=== PATIENT | female | born 1960 | race African-American/Black ===

== ENCOUNTER 2016-07-11 16:42 | Emergency (ER) | payer OTHER, MEDICAID ==
[~2016-07-11] VITALS: Ht 167.6 cm; Wt 81.6 kg
[~2016-07-11 16:42] MED LIST: CHOLESTEROL MED; CYCL5TAB PO; LEVO100T7 PO; SIMV10TA3 PO
--- OUTSIDE RECORDS SUMMARY | 2016-07-11 16:47 | XMS REPORT | Continuity of Care Document ---
Author Author [facility] Organization [facility] Address Unknown Phone Unavailable Care Team Providers Care Plasterer Apprentice Name Role Phone Unknown, Unknown PCP Unavailable Source Comments Some departments are not documenting in the electronic medical record. If you do not see the information that you expected, contact Release of Information in the Health Information Management department at [phone] for further assistance in locating additional records.[facility] Active Allergies and Adverse Reactions No Known Allergies Current Medications Prescription Sig. Disp. Refills Start End Date Status Date losartan (COZAAR) 50 mg Take 50 mg by mouth Active tablet daily. levothyroxine (SYNTHROID) Take 100 mcg by mouth Active 100 mcg tablet daily. simvastatin (ZOCOR) 20 mg Take 20 mg by mouth Active tablet daily. diclofenac sodium DR Take 75 mg by mouth twice Active (VOLTAREN) 75 mg tablet daily. cyclobenzaprine Take 10 mg by mouth every Active (FLEXERIL) 10 mg tablet 12 hours as needed for Muscle Cramps. ganciclovir(+) (ZIRGAN) Place 1 Drop into or 1 Tube 2 06/03/19 Active 0.15 % ophthalmic gel around eye(s) five times 16 daily. 5x day for one week then decrease to 3x day. prednisoLONE acetate Insert or Apply 1 Drop to 1 Bottle 1 06/03/19 Active (PRED FORTE) 1 % left eye as directed four 16 ophthalmic suspension times daily. 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 Reduced corneal nerves and possible segments of collagen. No hyphae, or double walled cysts Oasys 8.4 -.0.50 14.2 05/02/15 Gm stain 2 Gm + rods, but no growth at 3 days L ast Assessment & Plan: Stay off zirgan and acyv PF QOD RT 8-12 weeks Social History Tobacco Use Types Packs/Day Years Used Date Current Every Day Smoker Cigarettes 0.5 Alcohol Use Drinks/Week oz/Week Comments Yes 0 Standard 0.0 on occasion drinks or equivalent Last Filed Vital Signs Vital Sign Reading Time Taken Blood Pressure - - Pulse - - Temperature - - Respiratory Rate - - Height 1.702 m (5' 7") 08/29/2015 9:30 AM CDT Weight 113.399 kg (250 lb) 08/29/2015 9:30 AM CDT Body Mass Index 39.15 08/29/2015 9:30 AM CDT Oxygen Saturation - - Plan of Care Health Maintenance Due Date Last Done Comments Hepatitis C Screening 1961 Physical (Comprehensive) 1968 Exam Pertussis Vaccine 1972 Tetanus Vaccine 1978 Cervical Cancer Screening 1982 Breast Cancer Screening 2001 Colorectal Cancer 2011 Screening Influenza Vaccine 12/24/2016 Results from Last 3 Months Not on file
[2016-07-11] MEDS ORDERED: DICL75TA2 PO (17:10)
[2016-07-11] MEDS ORDERED: CYCL10TA9 PO (17:10)
[2016-07-11] MEDS ORDERED: LOSA50TA36 PO (17:10)
[2016-07-11] MEDS ORDERED: METF500T8 PO (17:10)
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
--- NOTE | 2016-07-11 18:11 | Diagnostic Imaging Report ---
EXAMINATION: Three views of the right ankle. INDICATION: Ankle injury. Twisted ankle. FINDINGS: There is a transversely oriented and mildly displaced fracture demonstrated of the medial malleolus. There is no evidence of a fracture of the distal fibula. There is no widening of the mortise. The talar dome is normal in morphology. Other than degenerative calcaneal spurs, the visualized portion of the foot is unremarkable. IMPRESSION: Mildly displaced transversely oriented fracture of the medial malleolus. Ankle alignment appears normal. No distal fibular fracture evident. Dictated by: Dictated on workstation # [id number]
[2016-07-11] MEDS ORDERED: HYDR-757 PO (18:50)
[2016-07-11] MEDS ORDERED: HYDROcodone/APAP 5 MG/325 MG (LORTAB) TAB PO ONE (19:00)
[2016-07-11 19:08] VITALS: BP 112/70
== END 2016-07-11 19:08 | disposition home or self-care (01) ==
LOC: EDUNIT# 16:42 → ER 16:43
DX: S82.51XA Displaced fracture of medial malleolus of right tibia, initial encounter for closed fracture (principal); E11.9 Type 2 diabetes mellitus without complications; I10 Essential (primary) hypertension; F17.210 Nicotine dependence, cigarettes, uncomplicated; Z79.899 Other long term (current) drug therapy; V48.4XXA Person boarding or alighting a car injured in noncollision transport accident, initial encounter; Y92.014 Private driveway to single-family (private) house as the place of occurrence of the external cause; Y99.8 Other external cause status
CPT/HCPCS: 29515; 73610

== ENCOUNTER → 2016-09-30 | Outpatient (CLI) | payer MEDICAID ==
[~2016-09-30] MED LIST changes: +CYCL10TA9 PO; +DICL75TA2 PO; +HYDR-757 PO; +LOSA50TA36 PO; +METF500T8 PO
--- NOTE | 2016-10-01 17:52 | Diagnostic Imaging Report ---
Bilateral screening mammogram. The current study was also evaluated with a Computer Aided Detection (CAD) system. INDICATION: Screening. No current complaints stated on the questionnaire. COMPARISON: 06/21/14. FINDINGS: The breasts are composed of heterogeneously dense parenchyma which may decrease mammographic sensitivity. There are benign-appearing calcifications seen. Allowing for technique and positional differences, no suspicious change is seen. IMPRESSION: Dense breasts with no definite change. ACR BI-RADS Category 2: Benign findings. Result letter will be mailed to the patient. Note: At least 10% of breast cancer is not imaged by mammography. Dictated on workstation # [id number]
== END ==
LOC: RAD 11:30
PROVIDERS: ATTEND Nurse Practitioner Family
DX: Z12.31 Encounter for screening mammogram for malignant neoplasm of breast (principal)
CPT/HCPCS: 77067

== ENCOUNTER → 2016-09-30 | Outpatient (CLI) | payer MEDICAID ==
--- NOTE | 2016-09-30 14:32 | Diagnostic Imaging Report ---
EXAMINATION: DEXA scan. INDICATION: Osteopenia TECHNIQUE: Bone mineral density estimated based on dual energy radiography over the lumbar spine and femoral necks, was performed. FINDINGS: The lumbar spine T-score is 0.5. T score over the left femoral neck is 1.6 and on the right side is 1.3. IMPRESSION: Normal bone mineral density. Dictated by: Dictated on workstation # [id number]
== END ==
LOC: RAD 11:34
PROVIDERS: ATTEND Nurse Practitioner Family
DX: Z78.0 Asymptomatic menopausal state (principal); Z87.81 Personal history of (healed) traumatic fracture; M89.9 Disorder of bone, unspecified
CPT/HCPCS: 77080

== ENCOUNTER 2017-03-08 16:24 | Emergency (ER) | payer MEDICAID ==
[~2017-03-08] VITALS: Ht 167.6 cm; Wt 83.9 kg
--- OUTSIDE RECORDS SUMMARY | 2017-03-08 16:40 | XMS REPORT | Clinical Summary ---
Author Author [facility] Organization [facility] Address Unknown Phone Unavailable Care Team Providers Care Upholstery Department Supervisor Name Role Phone PCP Unavailable Source Comments Some departments are not documenting in the electronic medical record. If you do not see the information that you expected, contact Release of Information in the Health Information Management department at [phone] for further assistance in locating additional records.[facility] Allergies No Known Allergies Current Medications Prescription Sig. Disp. Refills Start End Date Status Date losartan (COZAAR) 50 mg Take 50 mg by mouth Active tablet daily. levothyroxine (SYNTHROID) Take 100 mcg by mouth Active 100 mcg tablet daily. simvastatin (ZOCOR) 20 mg Take 20 mg by mouth Active tablet daily. cyclobenzaprine Take 10 mg by mouth every Active (FLEXERIL) 10 mg tablet 12 hours as needed for Muscle Cramps. 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: Presented to ED [...] and acyv PF QOD RT 8-12 weeks Encounters Date Type Specialty Care Team Description 12/10/2016 Office Visit Ophthalmology Heidy Cooper MD Corneal scar, left eye;Floppy lid syndrome from Last 3 Months Social History Tobacco Use Types Packs/Day Years Used Date Current Every Day Smoker Cigarettes 0.5 Alcohol Use Drinks/Week oz/Week Comments Yes 0 Standard 0.0 on occasion drinks or equivalent Sex Assigned at Date Recorded Not on file Last Filed Vital Signs Vital Sign Reading Time Taken Blood Pressure - - Pulse - - Temperature - - Respiratory Rate - - Oxygen Saturation - - Inhaled Oxygen - - Concentration Weight 111.5 kg (245 lb 13 oz) 12/10/2016 9:41 AM CDT Height 167.6 cm (5' 6") 12/10/2016 9:41 AM CDT Body Mass Index 39.68 12/10/2016 9:41 AM CDT Plan of Treatment Health Maintenance Due Date Last Done Comments HEPATITIS C SCREENING 1961 PHYSICAL (COMPREHENSIVE) 1968 EXAM PERTUSSIS VACCINE 1972 TETANUS VACCINE 1978 CERVICAL CANCER SCREENING 1991 BREAST CANCER SCREENING 2001 COLORECTAL CANCER 2011 SCREENING INFLUENZA VACCINE 11/23/2016 Results Not on filefrom Last 3 Months
--- OUTSIDE RECORDS SUMMARY | 2017-03-08 16:40 | XMS REPORT | Encounter Summary ---
Author Author [facility] Organization [facility] Address Unknown Phone Unavailable Care Team Providers Care Liquid Yeast Supervisor Name Role Phone PCP Unavailable Reason for Visit * Reason Comments Eye Problem PT previous Dr. Velazquez patient seen for neurotrophic keratitis OS; Pt states that this summer she has been having some eye pain in OS, redness, and light sensitivity; Pt states that vision at near is bad in the left eye; Pt denies flashes and floaters Encounter Details Date Type Department Care Team Description 12/10/2016 Office Visit [facility] Heidy Cooper MD Corneal scar, left Physicians - [address] eye;Floppy lid syndrome Ophthalmology [place], [place] [id number] [address] [place] [phone] [address] [place] [address] Social History Tobacco Use Types Packs/Day Years Used Date Current Every Day Smoker Cigarettes 0.5 Alcohol Use Drinks/Week oz/Week Comments Yes 0 Standard 0.0 on occasion drinks or equivalent Sex Assigned at Date Recorded Not on file as of this encounter Last Filed Vital Signs Vital Sign Reading Time Taken Blood Pressure - - Pulse - - Temperature - - Respiratory Rate - - Oxygen Saturation - - Inhaled Oxygen - - Concentration Weight 111.5 kg (245 lb 13 oz) 12/10/2016 9:41 AM CDT Height 167.6 cm (5' 6") 12/10/2016 9:41 AM CDT Body Mass Index 39.68 12/10/2016 9:41 AM CDT in this encounter Progress Notes * Heidy Cooper MD - 12/10/2016 10:00 AM CDT Formatting of this note may be different from the original. Body mass index is 39.68 kg/(m^2). Discussed patient's BMI with her. The body mass index is 39.68 kg/(m^2). and falls within the category of Obesity 2 (35 to <40); specialist visit only, referred back to Primary Care Provider for follow up. Assessment and Plan: Problem Corneal Scar, Left Eye Secondary to infection Floppy Lid Syndrome - MRx given per pt request pt understands vision limited due to scar OS - no evidence of active infection OS - ok to use OTC tears as needed and gel qhs - encourage pt to get checked for THOMAS All questions answered. Please return sooner should you have any questions or concerns. Heidy Cooper MD Staff Ophthalmology Next Visit:1 yr MRx x ECC [employer] [facility] TFBUT [place] IOP x Pachy x Dilate x OCT BAT x in this encounter Plan of Treatment Not on fileas of this encounter Visit Diagnoses Diagnosis Corneal scar, left eye Corneal opacity, unspecified Floppy lid syndrome Other disorders of eyelid in this encounter
--- OUTSIDE RECORDS SUMMARY | 2017-03-08 16:40 | XMS REPORT ---
Author Author NAINA GRIFFITH Organization [employer] Address Unknown Phone Unavailable Care Team Providers Care Estate Agent Name Role Phone NAINA GRIFFITH CP Unavailable Allergies No Known Allergies Problems Problem Type Condition Code Onset Dates Condition Status Assessment Acquired hypothyroidism E03.9 Active Problem Uterine leiomyoma, unspecified location D25.9 Active Assessment Uterine leiomyoma, unspecified location D25.9 Active Assessment Essential hypertension I10 Active Assessment Mixed hyperlipidemia E78.2 Active Problem Screening breast examination Z12.39 Active Problem Bilateral low back pain without sciatica M54.5 Active Problem Uterine bleeding, dysfunctional N93.8 Active Problem Acquired hypothyroidism E03.9 Active Problem Mixed hyperlipidemia E78.2 Active Problem Encounter for gynecological examination Z01.419 Active Problem Essential hypertension I10 Active Medications No Known Medications Procedures Procedure Coding System Code Date COMPREHEN METABOLIC PANEL CPT-4 95560 Jun 06, 2015 VENIPUNCT, ROUTINE* CPT-4 38976 Jun 06, 2015 ASSAY THYROID STIM HORMONE CPT-4 98694 Jun 06, 2015 Results Name Result Date Reference Range Unit Abnormality Flag ROUTINE VENIPUNCTURE Summary Purpose [employer] Submission
--- OUTSIDE RECORDS SUMMARY | 2017-03-08 16:40 | XMS REPORT ---
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 Active Problem Uterine bleeding, dysfunctional N93.8 Active 44984654 Problem Encounter for gynecological examination Z01.419 Active 260076202 Problem Type 2 diabetes mellitus without complication, without long-term current use of insulin E11.9 Active 519105329 Problem Prediabetes R73.09 Active 8665206 Problem Mixed hyperlipidemia E78.2 Active 346673136 Problem Carpal tunnel syndrome of right wrist G56.01 Active 355066933977837 Problem Uterine leiomyoma, unspecified location D25.9 Active 16679336 Problem Closed displaced fracture of medial malleolus of right tibia, initial encounter S82.51XA Active 34491424 Problem Essential hypertension I10 Active 77359548 ALLERGIES No Information SOCIAL HISTORY Never Assessed PLAN OF CARE VITAL SIGNS MEDICATIONS Medication Instructions Dosage Frequency Start Date End Date Duration Status Cyclobenzaprine HCl 10 mg Orally 1-2 times a day prn 1 tablet Active RESULTS No Results PROCEDURES No Known procedures IMMUNIZATIONS No Known Immunizations MEDICAL (GENERAL) HISTORY Type Description Date Medical History hypertension Medical History hyperlipidemia Medical History eczema Medical History fibroids Medical History breast nodule--Right, benign as of US from 08/2012 Medical History Hypothyroidism Medical History Alcoholism Medical History Lump or mass in breast Medical History Prediabetes last aic 6.3 Medical History Other abnormal glucose Medical History Nondependent tobacco use disorder Surgical History tubal ligation 1990 Hospitalization History see above
--- OUTSIDE RECORDS SUMMARY | 2017-03-08 16:41 | XMS REPORT ---
Author Author NAINA GRIFFITH Organization [employer] Address Unknown Phone Unavailable Care Team Providers Care Funeral Workers Name Role Phone NAINA GRIFFITH CP Unavailable Allergies No Known Allergies Problems Problem Type Condition Code Onset Dates Condition Status Problem Mixed hyperlipidemia E78.2 Active Problem Uterine leiomyoma, unspecified location D25.9 Active Problem Uterine bleeding, dysfunctional N93.8 Active Problem Screening breast examination Z12.39 Active Problem Prediabetes R73.09 Active Problem Essential hypertension I10 Active Problem Acquired hypothyroidism E03.9 Active Problem Bilateral low back pain without sciatica M54.5 Active Problem Encounter for gynecological examination Z01.419 Active Medications Medication Code System Code Instructions Start Date End Date Status Dosage levothyroxine NDC 0 100 mcg orally Once a day 2014 1 losartan NDC 0 50 mg orally Once a day June 27, 2014 take 1 tablet Simvastatin [facility] [address]-49 20 mg TAKE ONE TABLET BY MOUTH DAILY Results No Known Results Summary Purpose [employer] Submission
--- OUTSIDE RECORDS SUMMARY | 2017-03-08 16:41 | XMS REPORT ---
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 Active Problem Uterine bleeding, dysfunctional N93.8 Active 10083149 Problem Encounter for gynecological examination Z01.419 Active 306741792 Problem Type 2 diabetes mellitus without complication, without long-term current use of insulin E11.9 Active 445488914 Problem Prediabetes R73.09 Active 1015125 Problem Mixed hyperlipidemia E78.2 Active 117329522 Problem Carpal tunnel syndrome of right wrist G56.01 Active 295905465546059 Problem Uterine leiomyoma, unspecified location D25.9 Active 85641510 Problem Closed displaced fracture of medial malleolus of right tibia, initial encounter S82.51XA Active 15940569 Problem Essential hypertension I10 Active 99166771 ALLERGIES No Known Allergies SOCIAL HISTORY Never Assessed PLAN OF CARE Activity Details Follow Up 3 Months bp check 2 weeks nurse Reason:DM/HTN VITAL SIGNS Height 67 in 2016-09-15 Weight 252 lbs 2016-09-15 Temperature 98.4 degrees Fahrenheit 2016-09-15 Heart Rate 80 bpm 2016-09-15 Respiratory Rate 20 2016-09-15 BMI 39.46 kg/m2 2016-09-15 Blood pressure systolic 178 mmHg 2016-09-15 Blood pressure diastolic 102 mmHg 2016-09-15 MEDICATIONS Medication Instructions Dosage Frequency Start Date End Date Duration Status levothyroxine 100 mcg orally Once a day 1 24h Active Neurontin 300 mg 1 capsule by Oral route 1 time per day PRN for pain AT BEDTIME Apr, Active HydrOXYzine HCl 10 mg 1 tablet by Oral route 4 times per day PRN itching Feb, Active Cyclobenzaprine HCl 10 mg Orally 1-2 times a day prn 1 tablet Active Citalopram Hydrobromide 20 MG Orally Once a day 1 tablet 24h Active Simvastatin 20 mg orally daily 1 tablet 24h Active MetFORMIN HCl ER 500 mg Orally Once a day 1 tablet with evening meal 24h 30 day(s) Active Losartan Potassium-HCTZ 100-12.5 MG Orally Once a day 1 tablet 24h August, 30 day(s) Active Diclofenac Sodium 75 mg Orally 2 times a day 1 tablet with food or milk 12h Active RESULTS Name Result Date Reference Range TSH 2016-09-15 TSH 2.540 0.450-4.500 CMP 2016-09-15 Glucose, Serum 106 65-99 BUN 9 6-24 Creatinine, Serum 0.63 0.57-1.00 eGFR If NonAfricn Am 101 >59 eGFR If Africn Am 117 >59 BUN/Creatinine Ratio 14 9-23 Sodium, Serum 140 134-144 Potassium, Serum 3.8 3.5-5.2 Chloride, Serum 98 96-106 Carbon Dioxide, Total 23 18-29 Calcium, Serum 8.9 8.7-10.2 Protein, Total, Serum 6.8 6.0-8.5 Albumin, Serum 4.3 3.5-5.5 Globulin, Total 2.5 1.5-4.5 A/G Ratio 1.7 1.2-2.2 Bilirubin, Total 0.3 0.0-1.2 Alkaline Phosphatase, S 75 39-117 AST (SGOT) 15 0-40 ALT (SGPT) 20 0-32 A1C (IN HOUSE) 2016-09-15 A1C IN HOUSE 6.3 4.3 - 5.6 % Previous A1c 6.8 Lot [id number] Exp date 06/2018 Mammogram, Bilateral Screening 2016-09-30 Bone Density 2016-09-30 PROCEDURES Procedure Date Ordered Result Body Site GLYCATED HEMOGLOBIN TEST September 15, 2016 LAB NOT BILLED BY [facility] September 15, 2016 VENIPUNCT, ROUTINE* September 15, 2016 IMMUNIZATIONS No Known Immunizations MEDICAL (GENERAL) HISTORY [...]
--- OUTSIDE RECORDS SUMMARY | 2017-03-08 16:41 | XMS REPORT ---
Author Author NAINA GRIFFITH Organization eClinicalWorks Address Unknown Phone Unavailable Care Team Providers Care Door Liner Helper Name Role Phone NAINA GRIFFITH CP Unavailable Allergies No Known Allergies Problems Problem Type Condition Code Onset Dates Condition Status Problem Uterine leiomyoma, unspecified location D25.9 Active Problem Screening breast examination Z12.39 Active Problem Bilateral low back pain without sciatica M54.5 Active Problem Uterine bleeding, dysfunctional N93.8 Active Problem Acquired hypothyroidism E03.9 Active Problem Mixed hyperlipidemia E78.2 Active Problem Encounter for gynecological examination Z01.419 Active Problem Essential hypertension I10 Active Medications Medication Code System Code Instructions Start Date End Date Status Dosage Diclofenac Sodium [facility] [address]-11 75 MG May 17, 2014 1 tablet by Oral route 2 times per day PRN Cyclobenzaprine HCl [facility] [address]-51 10 MG Orally 1-2 times a day prn 1 tablet Results No Known Results Summary Purpose eClinicalWorks Submission
--- OUTSIDE RECORDS SUMMARY | 2017-03-08 16:41 | XMS REPORT | CCD ---
Author Author ALEXANDRE HERNADEZ Organization Unknown Address [address] [id number] Care Team Providers Care Core Worker Name Role Phone YEMI LEA MD Attphys ALISA GIL DO Prisurg AVILA Trejo NASST Vital Signs Vital Sign Value Unit Date/Time Recent/Initial? BP Systolic 112 mmHg 07/25/2014 17:05 Initial VS BP Diastolic 69 mmHg 07/25/2014 17:05 Initial VS Respiratory Rate 16 bpm 07/25/2014 17:07 Initial VS Heart Rate 79 bpm 07/25/2014 17:07 Initial VS O2 % BldC Oximetry 95 % 07/25/2014 17:07 Initial VS Body Temperature 97.2 degrees 07/25/2014 17:08 Initial VS Weight Measured 251 lbs 07/25/2014 17:35 Initial VS Height 66 in 07/25/2014 17:35 Initial VS BMI (Body Mass Index) 40.51 kg/m^2 07/25/2014 17:35 Initial VS BSA (Body Surface Area) 2.3 m^2 07/25/2014 17:35 Initial VS Respiratory Rate 12 bpm 07/26/2014 08:02 Most Recent VS Body Temperature 97.3 degrees 07/26/2014 08:02 Most Recent VS BP Systolic 168 mmHg 07/26/2014 09:16 Most Recent VS BP Diastolic 77 mmHg 07/26/2014 09:16 Most Recent VS Heart Rate 68 bpm 07/26/2014 12:04 Most Recent VS O2 % BldC Oximetry 98 % 07/26/2014 12:04 Most Recent VS Allergies Allergy Code Allergy Type Reaction Status No Known Drug Allergies 0 No known drug allergies Active Procedures Procedure Code Procedure Type Date CPK 269944087 SNOMED CT 07/25/[address] 07/25/2014 BASIC METABOLIC PANEL 685493841 SNOMED CT 07/26/2014 ^CBC W/AUTO DIFF [id number] [facility] CT 07/25/2014 RAPID DRUG SCREEN 057833774 [facility] CT 07/25/2014 ALCOHOL [id number] [facility] 07/25/2014 COMPREHENSIVE METABOLIC PANEL [id number] [facility] 2014 CBC W/ AUTO DIFF (RFLX MAN DIFF IF IND) [id number] [facility] 07/25/2014 History of Immunizations Unknown or Not Available. Problems Problem Code Start Date Resolved Date Status Alcohol toxicity 42562930 Active Results BASIC METABOLIC PANEL - Collect Date/Time: 07/26/2014 05:05 Test Name Code Test Result Test Units Test Ref Range GLUCOSE 2345-7 111 MG/DL L=70 H=100 SODIUM 2951-2 146 MEQ/L L=135 H=148 POTASSIUM 2823-3 4.2 MEQ/L L=3.5 H=5.3 CHLORIDE 2075-0 111 MEQ/L L=96 H=110 CO2 2028-9 24 MEQ/L L=22 H=29 BUN 3094-0 8 MG/DL L=8 H=22 CREATININE 2160-0 0.6 MG/DL L=0.6 H=1.6 CALCIUM 82083-3 8.2 MG/DL L=8.2 H=10.6 AGE 54 yrs GFR NonAA 105 GFR AA 127 eGFR >60 N/A eGFR AA* >60 N/A COMPREHENSIVE METABOLIC PANEL - Collect Date/Time: 07/25/2014 14:20 Test Name Code Test Result Test Units Test Ref Range GLUCOSE 2345-7 109 MG/DL L=70 H=100 SODIUM 2951-2 145 MEQ/L L=135 H=148 POTASSIUM 2823-3 3.9 MEQ/L L=3.5 H=5.3 CHLORIDE 2075-0 108 MEQ/L L=96 H=110 CO2 2028-9 25 MEQ/L L=22 H=29 BUN 3094-0 10 MG/DL L=8 H=22 CREATININE 2160-0 0.7 MG/DL L=0.6 H=1.6 SGOT/AST 1920-8 18 IU/L L=10 H=40 SGPT/ALT 1742-6 19 IU/L L=8 H=54 ALK PHOS 6768-6 72 IU/L L=35 H=115 TOTAL PROTEIN 2885-2 6.3 G/DL L=5.5 H=8.5 ALBUMIN 1751-7 4.4 G/DL L=3.1 H=5.4 TOTAL BILI 1975-2 0.3 MG/DL L=0.0 H=1.5 CALCIUM 05177-3 8.6 MG/DL L=8.2 H=10.6 AGE 54 yrs GFR NonAA 88 GFR AA 107 eGFR >60 N/A eGFR AA* >60 N/A CPK - Collect Date/Time: 07/25/2014 14:20 Test Name Code Test Result Test Units Test Ref Range CPK 2157-6 214 IU/L L=0 H=235 ALCOHOL - Collect Date/Time: 07/25/2014 14:20 Test Name Code Test Result Test Units Test Ref Range ETHANOL 5640-8 344 MG/DL RAPID DRUG SCREEN - Collect Date/Time: 07/25/2014 21:18 Test Name Code Test Result Test Units Test Ref Range Cannabinoids (THC) NEGATIVE N/A NEG: < 50 ng/ ml Phencyclidine (PCP) NEGATIVE N/A NEG: < 25 ng/ ml Cocaine NEGATIVE N/A NEG: < 300 ng/ml Methamphetamine NEGATIVE N/A NEG: < 1000 ng/ml Opiates NEGATIVE N/A NEG: < 300 ng/ml Amphetamine NEGATIVE N/A NEG: < 1000 ng/ml Benzodiazepines NEGATIVE N/A NEG: < 300 ng/ml Tricyclic Antidepres NEGATIVE N/A NEG: < 300 ng/ ml Methadone NEGATIVE N/A NEG: < 300 ng/ml Barbiturates NEGATIVE N/A NEG: < 200 ng/ml Oxycodone NEGATIVE N/A NEG: < 100 ng/ml Propoxyphene (PPX) NEGATIVE N/A NEG: < 300 ng/ ml CBC W/ AUTO DIFF (RFLX MAN DIFF IF IND) - Collect Date/Time: 07/25/2014 14:20 Test Name Code Test Result Test Units Test Ref Range WBC 32386-6 6.4 TH/CMM L=4.5 H=10.8 RBC 789-8 4.25 ML/CMM L=4.20 H=5.40 HGB 718-7 12.9 G/DL L=12.0 H=16.0 HCT 4544-3 39.7 % L=37.0 H=47.0 MCV 93 FL L=81 H=99 MCH 30.4 PG L=27.0 H=33.0 MCHC 32.5 G/DL L=31.0 H=36.0 RDW SD 56 FL L=36 H=50 RDW CV 16.4 % L=0.0 H=14.8 MPV 10.0 FL L=9.3 H=12.5 PLT 777-3 207 TH/CMM L=130 H=440 NRBC# 0.00 TH/CMM L=0.00 H=0.00 NRBC% 0.0 /100WBC L=0.0 H=2.0 %NEUT 35.0 % %LYMP 56.0 % %MONO 6.8 % %EOS 1.6 % %BASO 0.6 % #NEUT 2.23 TH/CMM L=2.10 H=8.20 #LYMP 3.57 TH/CMM L=0.90 H=5.20 #MONO 0.43 TH/CMM L=0.16 H=1.00 #EOS 0.10 TH/CMM L=0.00 H=0.80 #BASO 0.04 TH/CMM L=0.00 H=0.20 MANUAL DIFF NOT IND N/A MAGNESIUM - Collect Date/Time: 07/25/2014 14:20 Test Name Code Test Result Test Units Test Ref Range MAGNESIUM 95590-9 2.0 MG/DL L=1.7 H=2.8 Active Medications Medication Code Dose Units Frequency Route Modification Start Date/Time Lisinopril 10MG Oral Tablet 542323 10 MILLIGRAMS DAILY ORAL 07/26/2014 09:17 Medications Administered During Visit Medication Dose Units Frequency Route Date/ Time of Last Dose ENOXAPARIN 40 MG/0.4ML YELLOW [LOVENOX] 40 MG DAILY SUB Q 07/26/2014 09:36 FOLIC ACID(FOLVITE) TAB:1MG 1 MG DAILY PO 09:36 D5NS + KCL 20 MEQ 1000ML IV [PREDEFINED] CONT IV IV 07/26/2014 06:23 THIAMINE HCL [VITAMIN B-1] TAB: 100 MG 100 MG DAILY PO 07/26/2014 09:36 LORAZEPAM (ATIVAN) INJ : 2 MG/ML TUBEX 1 MG PRN IVP 07/25/2014 21:10 Encounters Encounter Diagnosis Diagnosis Code Start Date ALCOHOL ABUSE-UNSPEC 36311 07/25/2014 Social History Smoking Status Code Start Date End Date Light tobacco smoker [id number] Patient Decision Aids Unknown or Not Available. Discharge Instructions You were admitted to [facility] on 07/25/2014 with a principal diagnosis of ALCOHOL ABUSE-UNSPEC. You were discharged from [facility] on 07/26/2014. Should you have any questions prior to discharge, please contact a member of your healthcare team. If you have left the hospital and have any questions, please contact your primary care physician. HOME DIET: Regular. ACTIVITY INSTRUCTIONS(list limitations): Activity as Tolerated. SCRIPTS WRITTEN BY DOCTOR GIVEN TO PATIENT? No-none written by physician:. FOLLOW UP CARE - SEE YOUR PHYSICIAN: Make own appointment, In one week.Nickolas SOMMER [place] PATIENT PORTAL/OTHER INSTRUCTIONS: Provided education info on Patient Yordan. CONTACT PHYSICIAN IF YOU EXPERIENCE ANY: Continued right ankle pain. INSTRUCTIONS GIVEN BY (TYPE IN NAME AND DATE) Mlevin CASTRO SMOKING CESSATION: Smoking and second hand smoke is harmful, Smoking has been linked to cancer. cardiac disease, COPD, and asthma., For more information you can call:. [phone]-TJS-STOP, or [phone]-KSLI-[place]., A pamphlet on smoking was given to you. at admission.. IMMUNIZATIONS GIVEN DURING HOSPITALIZATION: None patient said she has had Flu vaccin fall and an Pneumonia vaccine previously. PRIMARY CARE PHYSICIAN OR PRACTITIONER: Nickolas SOMMER CHIEF COMPLAINT: ELEVATED ETOH Chief Complaint and Reason For Visit Chief Complaint Date of Onset ETOH INTOXICATION Function Status Unknown or Not Available. Plan of Care Unknown or Not Available. Referral/Transition of Care Unknown or Not Available.
--- OUTSIDE RECORDS SUMMARY | 2017-03-08 16:41 | XMS REPORT ---
Author Author NAINA GRIFFITH Organization eClinicalWorks Address Unknown Phone Unavailable Care Team Providers Care Welcome Wagon Hostess Name Role Phone NAINA GRIFFITH CP Unavailable Allergies No Known Allergies Problems Problem Type Condition ICD-9 Code Onset Dates Condition Status Problem Other and unspecified hyperlipidemia 272.4 Active Problem Leiomyoma of uterus, unspecified 218.9 Active Problem Nondependent tobacco use disorder 305.1 Active Problem Lumbago 724.2 Active Problem Other abnormal glucose 790.29 Active Problem Essential hypertension, benign 401.1 Active Problem Unspecified hypothyroidism 244.9 Active Medications No Known Medications Results No Known Results Summary Purpose eClinicalWorks Submission
--- OUTSIDE RECORDS SUMMARY | 2017-03-08 16:41 | XMS REPORT ---
Author Author NAINA GRIFFITH [facility] Address [address] [place] [address] Care Team Providers Care Underground Mining Section Foreman Name Role Phone NAINA GRIFFITH Unavailable PROBLEMS Type Condition ICD9-CM Code [id number] Code Onset Dates Condition Status SNOMED Code Problem Acquired hypothyroidism E03.9 Active 887748169 Problem Encounter for gynecological examination Z01.419 Active 153339242 Problem Essential hypertension I10 Active 79791266 Problem Closed displaced fracture of medial malleolus of right tibia, initial encounter S82.51XA Active 55881871 Problem Carpal tunnel syndrome of right wrist G56.01 Active 915197624651819 Problem Uterine leiomyoma, unspecified location D25.9 Active 40956441 Problem Mixed hyperlipidemia E78.2 Active 235290924 Problem Neuropathy of both upper extremities G56.93 Active Problem Type 2 diabetes mellitus without complication, without long-term current use of insulin E11.9 Active 644643958 Problem Screening breast examination Z12.39 Active 067246962 Problem Bilateral low back pain without sciatica M54.5 Active 929561808 Problem Prediabetes R73.09 Active 3832683 Problem Uterine bleeding, dysfunctional N93.8 Active 78825330 ALLERGIES Substance Reaction Event Type Date Status N.K.D.A. Unknown Non Drug Allergy Mar, Unknown SOCIAL HISTORY No smoking Hx information available PLAN OF CARE Activity Details Follow Up 3 Months Reason:predaiabetes bp VITAL SIGNS Height 67 in 2016-04-08 Weight 255.6 lbs 2016-04-08 Temperature 97.4 degrees Fahrenheit 2016-04-08 Heart Rate 78 bpm 2016-04-08 Respiratory Rate 18 2016-04-08 BMI 40.03 kg/m2 2016-04-08 Blood pressure systolic 164 mmHg 2016-04-08 Blood pressure diastolic 96 mmHg 2016-04-08 MEDICATIONS Medication Instructions Dosage Frequency Start Date End Date Duration Status HydrOXYzine HCl 10 mg 1 tablet by Oral route 4 times per day PRN itching 26 Nov, 2014 Active Citalopram Hydrobromide 20 MG Orally Once a day 1 tablet 24h Active MetFORMIN HCl ER 500 MG Orally Once a day 1 tablet with evening meal 24h Mar, 30 day(s) Active Cyclobenzaprine HCl 10 mg Orally 1-2 times a day prn 1 tablet Active Neurontin 300 mg 1 capsule by Oral route 1 time per day PRN for pain AT BEDTIME Apr, Active Simvastatin 20 mg orally daily 1 tablet 24h Active losartan 50 mg orally Once a day take 1 tablet 24h Jun, Active levothyroxine 100 mcg orally Once a day 1 24h Feb, Active Diclofenac Sodium 75 MG 1 tablet by Oral route 2 times per day PRN Apr, Active RESULTS Name Result Date Reference Range A1C (IN HOUSE) 2016-04-08 A1C IN HOUSE 6.8 4.3 - 5.6 % Previous A1c 6.2 Lot [id number] Exp date 01/10 MICROALBUMIN, URINE (IN HOUSE) 2016-04-08 MICROALBUMIN normal Lot # [id number] Exp date 12/09 Clarity clear Color yellow ALB 30mg/L CRE 200mg/dL A:C (IN HOUSE) <30mg/g Control Control Lot # Exp date TSH 2016-04-08 TSH 2.350 0.450-4.500 CBC 2016-04-08 WBC 5.2 3.4-10.8 RBC 4.56 3.77-5.28 Hemoglobin 13.6 11.1-15.9 Hematocrit 42.2 34.0-46.6 MCV 93 79-97 MCH 29.8 26.6-33.0 MCHC 32.2 31.5-35.7 RDW 14.8 12.3-15.4 Platelets 215 150-379 Neutrophils 48 Lymphs 42 Monocytes 7 Eos 2 Basos 1 Neutrophils (Absolute) 2.5 1.4-7.0 Lymphs (Absolute) 2.2 0.7-3.1 Monocytes(Absolute) 0.4 0.1-0.9 Eos (Absolute) 0.1 0.0-0.4 Baso (Absolute) 0.0 0.0-0.2 Immature Granulocytes 0 Immature Grans (Abs) 0.0 0.0-0.1 CMP 2016-04-08 Glucose, Serum 133 65-99 BUN 11 6-24 Creatinine, Serum 0.65 0.57-1.00 eGFR If NonAfricn Am 100 >59 eGFR If Africn Am 116 >59 BUN/Creatinine Ratio 17 9-23 Sodium, Serum 141 134-144 Potassium, Serum 4.3 3.5-5.2 Chloride, Serum 98 96-106 Carbon Dioxide, Total 28 18-29 Calcium, Serum 9.6 8.7-10.2 Protein, Total, Serum 6.9 6.0-8.5 Albumin, Serum 4.3 3.5-5.5 Globulin, Total 2.6 1.5-4.5 A/G Ratio 1.7 1.1-2.5 Bilirubin, Total 0.2 0.0-1.2 Alkaline Phosphatase, S 68 39-117 AST (SGOT) 12 0-40 ALT (SGPT) 17 0-32 PROCEDURES Procedure Date Ordered Related Diagnosis Body Site LAB NOT BILLED BY [facility] Apr 08, 2016 GLYCATED HEMOGLOBIN TEST Apr 08, 2016 VENIPUNCT, ROUTINE* Apr 08, 2016 Office Visit, Est Pt., Level 5 Apr 08, 2016 MICROALBUMIN, SEMIQUANT Apr 08, 2016 IMMUNIZATIONS No Known Immunizations
--- OUTSIDE RECORDS SUMMARY | 2017-03-08 16:41 | XMS REPORT ---
Author FARRAH Cifuentes [facility] eClinicalWorks Address Unknown Phone Unavailable Care Team Providers Care Unit Tender Name Role Phone FARRAH VEGA CP Unavailable Allergies, Adverse Reactions, Alerts Substance Reaction Event Type N.K.D.A. Info Not Available Non Drug Allergy Problems Problem Type Condition Code Onset Dates Condition Status Assessment Dental examination Z01.20 Active Problem Mixed hyperlipidemia E78.2 Active Problem Uterine [...] Instructions Start Date End Date Status Dosage Citalopram Hydrobromide [facility] [address]-60 20 MG Orally Once a day 1 tablet HydrOXYzine HCl [facility] [address]-94 10 mg 2014 1 tablet by Oral route 4 times per day PRN itching Neurontin [facility] [address]-91 300 mg May 17, 2014 1 capsule by Oral route 1 time per day PRN for pain AT BEDTIME Procedures Procedure Coding System Code Date Dental no charge CPT-4 D0099 Dec 17, 2015 Vital Signs Date/Time: Dec 17, 2015 Blood Pressure Diastolic 102,150 mmHg Blood Pressure Systolic 152 mmHg Height 67 in Results No Known Results Summary Purpose eClinicalWorks Submission
--- OUTSIDE RECORDS SUMMARY | 2017-03-08 16:42 | XMS REPORT ---
Author Author NAINA GRIFFITH Organization eClinicalWorks Address Unknown Phone Unavailable Care Team Providers Care Laundry Supervisor Name Role Phone NAINA GRIFFITH CP Unavailable Allergies No Known Allergies Problems Problem Type Condition Code Onset Dates Condition Status Problem Acquired hypothyroidism E03.9 Active Problem Mixed hyperlipidemia E78.2 Active Problem Essential hypertension I10 Active Problem Uterine leiomyoma, unspecified location D25.9 Active Medications Medication Code System Code Instructions Start Date End Date Status Dosage Simvastatin [facility] [address]-44 20 MG Labwork needed for futher refills. TAKE ONE TABLET BY MOUTH DAILY Results No Known Results Summary Purpose eClinicalWorks Submission
--- OUTSIDE RECORDS SUMMARY | 2017-03-08 16:45 | XMS REPORT ---
Author Author NIANA GRIFFITH Organization eClinicalWorks Address Unknown Phone Unavailable Care Team Providers Care Station Chief Name Role Phone NAINA GRIFFITH CP Unavailable Allergies No Known Allergies Problems Problem Type Condition Code Onset Dates Condition Status Problem Bilateral low back pain without sciatica M54.5 Active Problem Encounter for gynecological examination Z01.419 Active Problem Screening breast examination Z12.39 Active Problem Mixed hyperlipidemia E78.2 Active Problem Uterine leiomyoma, unspecified location D25.9 Active Problem Essential hypertension I10 Active Problem Acquired hypothyroidism E03.9 Active Medications Medication Code System Code Instructions Start Date End Date Status D[facility] [address]-47 500 MG Orally 2 times a day Mar 31, 2015 Apr 07, 2015 1 tablet Results No Known Results Summary Purpose eClinicalWorks Submission
--- OUTSIDE RECORDS SUMMARY | 2017-03-08 16:48 | XMS REPORT ---
Author Author NAINA GRIFFITH Organization eClinicalWorks Address Unknown Phone Unavailable Care Team Providers Care Ambulatory Nurse Name Role Phone NAINA GRIFFITH CP Unavailable [...] Active Problem Unspecified hypothyroidism 244.9 Active Medications Medication Code System Code Instructions Start Date End Date Status Dosage Citalopram Hydrobromide [facility] [address]-08 20 MG Orally Once a day 1 tablet Results No Known Results Summary Purpose eClinicalWorks Submission
--- OUTSIDE RECORDS SUMMARY | 2017-03-08 16:48 | XMS REPORT ---
Author Author NAINA GRIFFITH Organization eClinicalWorks Address Unknown Phone Unavailable Care Team Providers Care Tobacco Blender Name Role Phone NAINA GRIFFITH CP Unavailable [...] Instructions Start Date End Date Status Dosage Cyclobenzaprine HCl [facility] [address]-50 10 mg Orally 1-2 times a day prn 1 tablet Diclofenac Sodium [facility] [address]-80 75 MG May 17, 2014 1 tablet by Oral route 2 times per day PRN Results No Known Results Summary Purpose eClinicalWorks Submission
--- OUTSIDE RECORDS SUMMARY | 2017-03-08 16:51 | XMS REPORT ---
Author HALEY Garcia [facility] eClinicalWorks Address Unknown Phone Unavailable Care Team Providers Care Mailmaster Name Role Phone HALEY MAYBERRY CP Unavailable Allergies No Known Allergies Problems Problem Type Condition ICD-9 Code Onset Dates Condition Status Assessment Dental examination V72.2 Active Problem Other and unspecified hyperlipidemia 272.4 Active Problem Leiomyoma of uterus, unspecified 218.9 Active Problem Nondependent tobacco use disorder 305.1 Active Problem Lumbago 724.2 Active Problem Other abnormal glucose 790.29 Active Problem Essential hypertension, benign 401.1 Active Problem Unspecified hypothyroidism 244.9 Active Medications No Known Medications Procedures Procedure Coding System Code Date Billing Notes on claim CPT-4 EC109 Dec 23, 2014 Results No Known Results Summary Purpose eClinicalWorks Submission
--- OUTSIDE RECORDS SUMMARY | 2017-03-08 16:52 | XMS REPORT ---
Author HALEY Garcia [facility] eClinicalWorks Address Unknown Phone Unavailable Care Team Providers Care Truss Assembler Name Role Phone HALEY MAYBERRY CP Unavailable [...] Medications Procedures Procedure Coding System Code Date INTRAORL-PERIAPICAL 1 FILM 85240 CPT-4 D0220 Dec 23, 2014 INTRAORL-PERIAPICAL EA ADD FILM CPT-4 D0230 Dec 23, 2014 COMP ORAL EVALUATION - NEW/EST PT CPT-4 D0150 Dec 23, 2014 TOPICAL FLUORIDE VARNISH CPT-4 D1206 Dec 23, 2014 BITEWINGS - TWO FILMS CPT-4 D0272 Dec 23, 2014 INTRAORL-PERIAPICAL EA ADD FILM CPT-4 D0230 Dec 23, 2014 PROPHYLAXIS - ADULT CPT-4 D1110 Dec 23, 2014 PANORAMIC FILM SEE ALSO CODE 10869 CPT-4 D0330 Dec 23, 2014 Results No Known Results Summary Purpose eClinicalWorks Submission
--- OUTSIDE RECORDS SUMMARY | 2017-03-08 16:52 | XMS REPORT ---
Author Author NAINA GRIFFITH Organization eClinicalWorks Address Unknown Phone Unavailable Care Team Providers Care Laborer Chicken Farm Name Role Phone NAINA GRIFFITH CP Unavailable Allergies, Adverse Reactions, Alerts Substance Reaction Event Type N.K.D.A. Info Not Available Non Drug Allergy Problems Problem Type Condition Code Onset Dates Condition Status Assessment Acquired hypothyroidism E03.9 Active Problem Acquired hypothyroidism E03.9 Active Problem Mixed hyperlipidemia E78.2 Active Problem Essential hypertension I10 Active Assessment Mixed hyperlipidemia E78.2 Active Assessment Essential hypertension I10 Active Problem Uterine leiomyoma, unspecified location D25.9 Active Assessment Uterine leiomyoma, unspecified location D25.9 Active Medications Medication Code System Code Instructions Start Date End Date Status Dosage losartan NDC 0 50 mg orally Once a day June 27, 2014 Jun 01, 2015 take [address] [facility] [address]-89 20 MG Labwork needed for futher refills. TAKE ONE TABLET BY MOUTH DAILY levothyroxine NDC 0 100 mcg orally Once a day 2014 Jun 01, [address] [facility] [address]-90 75 mg May 17, 2014 1 tablet by Oral route 2 times per day PRN Cyclobenzaprine HCl [facility] 77861057291 10 MG TAKE ONE TABLET BY MOUTH EVERY 12 HOURS NEEDED Procedures Procedure Coding System Code Date Office Visit, Est Pt., Level 4 CPT-4 47536 Mar 12, 2015 Vital Signs Date/Time: Mar 12, 2015 Temperature 97.1 F Weight 267.8 lbs Height 67 in BMI 41.94 Index Blood Pressure Diastolic 90 mmHg Blood Pressure Systolic 152 mmHg Cardiac Monitoring Heart Rate 80 bpm Results No Known Results Summary Purpose eClinicalWorks Submission
--- OUTSIDE RECORDS SUMMARY | 2017-03-08 16:55 | XMS REPORT ---
Author Author NAINA GRIFFITH [facility] Address [address] [place] [address] Care Team Providers Care Fruit Buyer Name Role Phone NAINA GRIFFITH Unavailable PROBLEMS Type Condition ICD9-CM Code [id number] Code Onset Dates Condition Status SNOMED Code Problem Acquired hypothyroidism E03.9 Active 290502796 Problem Encounter for gynecological examination Z01.419 Active 168625313 Problem Essential hypertension I10 Active 73038547 Problem Closed displaced fracture of medial malleolus of right tibia, initial encounter S82.51XA Active 16460054 Problem Carpal tunnel syndrome of right wrist G56.01 Active 150773266181464 Problem Uterine leiomyoma, unspecified location D25.9 Active 87774466 Problem Mixed hyperlipidemia E78.2 Active 913474321 Problem Neuropathy of both upper extremities G56.93 Active Problem Type 2 diabetes mellitus without complication, without long-term current use of insulin E11.9 Active 152199400 Problem Screening breast examination Z12.39 Active 284224433 Problem Bilateral low back pain without sciatica M54.5 Active 426708222 Problem Prediabetes R73.09 Active 7362362 Problem Uterine bleeding, dysfunctional N93.8 Active 69048256 ALLERGIES Unknown Allergies SOCIAL HISTORY No smoking Hx information available PLAN OF CARE VITAL SIGNS MEDICATIONS Unknown Medications RESULTS No Results PROCEDURES No Known procedures IMMUNIZATIONS No Known Immunizations
--- OUTSIDE RECORDS SUMMARY | 2017-03-08 16:55 | XMS REPORT ---
Author Author NAINA GRIFFITH Organization eClinical[employer] Address Unknown Phone Unavailable Care Team Providers Care Consulting Project Director Name Role Phone NAINA GRIFFITH CP Unavailable [...] Date End Date Status Dosage Cyclobenzaprine HCl [facility] [address]-70 10 mg Orally 1-2 times a day prn 1 tablet losartan NDC 0 50 mg orally Once a day June 27, 2014 take 1 tablet levothyroxine NDC 0 100 mcg orally Once a day 2014 1 Diclofenac Sodium [facility] [address]-19 75 MG May 17, 2014 1 tablet by Oral route 2 times per day PRN Citalopram Hydrobromide [facility] [address]-21 20 MG Orally Once a day 1 tablet Lorazepam [facility] [address]-67 1 MG Orally Once 30 minutues before produre September 18, 2015 1 tablet Simvastatin [facility] [address]-28 20 mg TAKE ONE TABLET BY MOUTH DAILY Neurontin [facility] [address]-24 300 mg May 17, 2014 1 capsule by Oral route 1 time per day PRN for pain AT BEDTIME HydrOXYzine HCl [facility] [address]-75 10 mg 2014 1 tablet by Oral route 4 times per day PRN itching Vital Signs Date/Time: Feb 20, 2016 Blood Pressure Diastolic 95 mmHg Blood Pressure Systolic 160 mmHg Height 67 in Results No Known Results Summary Purpose eClinicalWorks Submission
--- OUTSIDE RECORDS SUMMARY | 2017-03-08 16:55 | XMS REPORT ---
Author Author NAINA GRIFFITH [facility] eClinicalWorks Address Unknown Phone Unavailable Care Team Providers Care Return To Factory Clerk Name Role Phone NAINA GRIFFITH CP Unavailable Allergies, Adverse Reactions, Alerts Substance Reaction Event Type N.K.D.A. Info Not Available Non Drug Allergy Problems Problem Type Condition Code Onset Dates Condition Status Assessment Essential hypertension I10 Active Problem Uterine leiomyoma, unspecified location D25.9 Active Assessment Uterine leiomyoma, unspecified location D25.9 Active Assessment Uterine bleeding, dysfunctional N93.8 Active Problem Screening [...] [facility] [address]-92 75 mg May 17, 2014 1 tablet by Oral route 2 times per day PRN levothyroxine NDC 0 100 mcg orally Once a day 2014 Jun 01, 2015 1 Cyclobenzaprine HCl [facility] [address]-59 10 MG Orally 1-2 times a day prn 1 tablet Simvastatin [facility] [address]-16 20 MG Labwork needed for futher refills. TAKE ONE TABLET BY MOUTH DAILY losartan NDC 0 50 mg orally Once a day June 27, 2014 Jun 01, 2015 take 1 tablet Procedures Procedure Coding System Code Date Office Visit, Est Pt., Level 4 CPT-4 83354 Apr 24, 2015 Vital Signs Date/Time: Apr 24, 2015 Temperature 97.6 F Weight 259.1 lbs Height 67 in BMI 40.58 Index Blood Pressure Diastolic 96 mmHg Blood Pressure Systolic 162 mmHg Cardiac Monitoring Heart Rate 80 bpm Results No Known Results Summary Purpose eClinicalWorks Submission
--- OUTSIDE RECORDS SUMMARY | 2017-03-08 16:55 | XMS REPORT ---
Author Author NAINA GRIFFITH Organization [employer] Address Unknown Phone Unavailable Care Team Providers Care Audit Clerk Name Role Phone NAINA GRIFFITH CP [...]
--- OUTSIDE RECORDS SUMMARY | 2017-03-08 16:55 | XMS REPORT ---
Author Author NAINA GRIFFITH [facility] Address [address] [place] [address] Care Team Providers Care Nanotechnician Name Role Phone NAINA GRIFFITH Unavailable PROBLEMS Type Condition ICD9-CM Code AIB12-KU Code Onset Dates Condition Status SNOMED Code Problem Acquired hypothyroidism E03.9 Active 176881260 Problem Screening breast examination Z12.39 Active 740247232 Problem Bilateral low back pain without sciatica M54.5 Active 230258538 Problem Dental examination Z01.20 Active 915882304 Problem Neuropathy of both upper extremities G56.93 Active Problem Uterine bleeding, dysfunctional N93.8 Active 42765828 Problem Encounter for gynecological examination Z01.419 Active 024643100 Problem Type 2 diabetes mellitus without complication, without long-term current use of insulin E11.9 Active 550625182 Problem Prediabetes R73.09 Active 5082009 Problem Mixed hyperlipidemia E78.2 Active 823980287 Problem Carpal tunnel syndrome of right wrist G56.01 Active 781401114491348 Problem Uterine leiomyoma, unspecified location D25.9 Active 71422056 Problem Closed displaced fracture of medial malleolus of right tibia, initial encounter S82.51XA Active 56597343 Problem Essential hypertension I10 Active 78230258 ALLERGIES No Information SOCIAL HISTORY Never Assessed PLAN OF CARE VITAL SIGNS MEDICATIONS Medication Instructions Dosage Frequency Start Date End Date Duration Status MetFORMIN HCl ER 500 MG Orally Once a day- Must have appt for refills 1 tablet with evening meal Mar, 30 day(s) Active RESULTS No Results PROCEDURES No Known [...]
--- OUTSIDE RECORDS SUMMARY | 2017-03-08 16:55 | XMS REPORT ---
Author Author NAINA GRIFFITH Organization [facility] Address [address] [place] [address] Care Team Providers Care Envelope Press Operator Name Role Phone NAINA GRIFFITH Unavailable PROBLEMS Type Condition ICD9-CM Code RIX20-NN Code Onset Dates Condition Status SNOMED Code Problem Essential hypertension I10 Active 21081608 Problem Encounter for gynecological examination Z01.419 Active 163222196 Problem Acquired hypothyroidism E03.9 Active 484700791 Problem Closed displaced fracture of medial malleolus of right tibia, initial encounter S82.51XA Active 85350811 Problem Uterine leiomyoma, unspecified location D25.9 Active 29679929 Problem Mixed hyperlipidemia E78.2 Active 247895442 Problem Carpal tunnel syndrome of right wrist G56.01 Active 896757380163140 Problem Neuropathy of both upper extremities G56.93 Active Problem Type 2 diabetes mellitus without complication, without long-term current use of insulin E11.9 Active 797551661 Problem Screening breast examination Z12.39 Active 288264776 Problem Bilateral low back pain without sciatica M54.5 Active 138995923 Problem Prediabetes R73.09 Active 4705705 Problem Uterine bleeding, dysfunctional N93.8 Active 42786695 ALLERGIES No Information SOCIAL HISTORY Never Assessed [...]
--- OUTSIDE RECORDS SUMMARY | 2017-03-08 16:55 | XMS REPORT ---
Author Author NAINA GRIFFITH Organization [employer] Address Unknown Phone Unavailable Care Team Providers Care Boiler Fireman Name Role Phone NAINA GRIFFITH CP Unavailable Allergies, Adverse Reactions, Alerts Substance Reaction Event Type N.K.D.A. Info Not Available Non Drug Allergy Problems Problem Type Condition Code Onset Dates Condition Status Assessment Uterine leiomyoma, unspecified location D25.9 Active Assessment Preventative health care Z00.00 Active Assessment Screening breast examination Z12.39 Active Assessment Encounter for gynecological examination Z01.419 Active Assessment Bilateral low back pain without sciatica M54.5 Active Problem Bilateral low back pain without [...] 2014 Jun 01, 2015 take 1 tablet levothyroxine NDC 0 100 mcg orally Once a day 2014 Jun 01, 2015 1 Diclofenac Sodium [facility] [address]-53 75 mg May 17, 2014 1 tablet by Oral route 2 times per day PRN Simvastatin [facility] [address]-64 20 MG Labwork needed for futher refills. TAKE ONE TABLET BY MOUTH DAILY Cyclobenzaprine HCl [facility] [address]-93 10 MG Orally 1-2 times a day prn 1 tablet Procedures Procedure Coding System Code Date Preventive Care Est Pt. Age 40-64 CPT-4 17007 Mar 19, 2015 SPECIMEN HANDLING CPT-4 34966 Mar 19, 2015 Vital Signs Date/Time: Mar 19, 2015 Temperature 97.0 F Weight 260.0 lbs Height 67 in BMI 40.72 Index Blood Pressure Diastolic 104 mmHg Blood Pressure Systolic 156 mmHg Cardiac Monitoring Heart Rate 78 bpm Results No Known Results Summary Purpose eClinicalWorks Submission
--- OUTSIDE RECORDS SUMMARY | 2017-03-08 16:55 | XMS REPORT ---
Author Author NAINA GRIFFITH Organization e[employer] Address Unknown Phone Unavailable Care Team Providers Care Night Shift Name Role Phone NAINA GRIFFITH CP Unavailable Allergies No Known Allergies Problems Problem Type Condition ICD-9 Code Onset Dates Condition Status Assessment Skin lesion 709.9 Active Problem Other and unspecified hyperlipidemia 272.4 Active Problem Leiomyoma of uterus, unspecified 218.9 Active Problem Nondependent tobacco use disorder 305.1 Active Problem Lumbago 724.2 Active Problem Other abnormal glucose 790.29 Active Problem Essential hypertension, benign 401.1 Active Problem Unspecified hypothyroidism 244.9 Active Medications No Known Medications Results No Known Results Summary Purpose eClinicalWorks Submission
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
[2017-03-08] MEDS ORDERED: LIDOCAINE 2% VISCOUS 15 ML UDC PO ONE (17:00)
[2017-03-08] MEDS ORDERED: ANTACID SUSP 30 ML UDC (MYLANTA) PO ONE (17:00)
[2017-03-08] MEDS ORDERED: FAMOTIDINE 20MG/2ML IV (PEPCID) IVP ONE (17:00)
--- NOTE | 2017-03-08 17:00 | ED General ---
General Stated Complaint: ABD PAIN,VOMITING Source of Information: Patient Exam Limitations: No Limitations History of Present Illness Time Seen by Provider: 16:59 Initial Comments To ER with epigastric abdominal pain described as a burning sensation and intermittent vomiting. This been present since February 12. She was a former alcoholic but has not had anything to drink since February 12. Her yesterday and she's been under increased stress secondary to that today. Timing/Duration: 1-2 Days Severity: Moderate Associated Systoms: Nausea/Vomiting Allergies and Home Medications Allergies Coded Allergies: No Known Drug Allergies (Unverified , 08/27/15) Home Medications Cyclobenzaprine HCl 10 Mg Tablet, 10 MG PO 1-2 times daily, #45 (Reported) Diclofenac Sodium 75 Mg Tablet.dr, 75 MG PO BID PRN for prn, #60 (Reported) Hydrocodone/Acetaminophen 1 Each Tablet, 1 EACH PO Q6H PRN for PAIN, #14 Prescribed by: CAPRI FLORES on 07/11/16 1850 Levothyroxine Sodium 100 Mcg Tablet, 100 MCG PO DAILY, (Reported) Losartan Potassium 50 Mg Tablet, 50 MG PO DAILY, #90 (Reported) Metformin HCl 500 Mg Tab.er.24h, 1 TAB PO DAILY, #30 (Reported) Simvastatin 10 Mg Tablet, 20 MG PO DAILY, (Reported) Constitutional: see HPI EENTM: see HPI Respiratory: no symptoms reported Cardiovascular: no symptoms reported Genitourinary: no symptoms reported Musculoskeletal: no symptoms reported Skin: no symptoms reported Psychiatric/Neurological: No Symptoms Reported Hematologic/Lymphatic: No Symptoms Reported Past Jxgmeqj-Fgjvgf-Ggdxiv Hx Patient Social History Recent Foreign Travel: No Contact w/Someone Who Travel: No Recent Hopitalizations: No Seasonal Allergies Seasonal Allergies: No Surgeries Surgeries: Tubal Ligation Cardiovascular Cardiac Disorders: High Cholesterol, Hypertension Musculoskeletal Musculoskeletal Disorders: Chronic Back Pain Endocrine Endocrine Disorders: Hypothyroidsim, Diabetes, Non-Insulin dep Physical Exam Vital Signs Vital Sign - Last 12Hours 03/08/17 16:51 Temp 98.9 Pulse 67 Resp 18 B/P (MAP) 183/109 Pulse Ox 94 O2 Delivery Room Air Capillary Refill : General Appearance: No Apparent Distress, WD/WN Eyes: Bilateral Eye Normal Inspection, Bilateral Eye PERRL, Bilateral Eye EOMI HEENT: PERRL/EOMI, TMs Normal Respiratory: Normal Breath Sounds, No Accessory Muscle Use, No Respiratory Distress Cardiovascular: Regular Rate, Rhythm, Normal Peripheral Pulses Gastrointestinal: Non Tender, Soft Extremity: Normal Capillary Refill, Normal Inspection (Haldol) Neurologic/Psychiatric: Alert, Oriented x3 Progress/Results/Core Measures Results/Orders Lab Results Laboratory Tests Test 03/08/17 16:55 03/08/17 17:58 Range/Units White Blood Count 8.1 4.3-11.0 10^3/uL Red Blood Count 4.14 L 4.35-5.85 10^6/uL Hemoglobin 12.6 11.5-16.0 G/DL Hematocrit 39 35-52 % Mean Corpuscular Volume 94 80-99 FL Mean Corpuscular Hemoglobin 30 25-34 PG Mean Corpuscular Hemoglobin Concent 33 32-36 G/DL Red Cell Distribution Width 14.8 H 10.0-14.5 % Platelet Count 260 130-400 10^3/uL Mean Platelet Volume 10.5 H 7.4-10.4 FL Neutrophils (%) (Auto) 61 42-75 % Lymphocytes (%) (Auto) 29 12-44 % Monocytes (%) (Auto) 8 0-12 % Eosinophils (%) (Auto) 3 0-10 % Basophils (%) (Auto) 1 0-10 % Neutrophils # (Auto) 4.9 1.8-7.8 X 10^3 Lymphocytes # (Auto) 2.3 1.0-4.0 X 10^3 Monocytes # (Auto) 0.6 0.0-1.0 X 10^3 Eosinophils # (Auto) 0.2 0.0-0.3 10^3/uL Basophils # (Auto) 0.0 0.0-0.1 10^3/uL Prothrombin Time 13.3 12.2-14.7 SEC INR Comment 1.0 0.8-1.4 Sodium Level 141 135-145 MMOL/L Potassium Level 3.5 L 3.6-5.0 MMOL/L Chloride Level 103 98-107 MMOL/L Carbon Dioxide Level 30 21-32 MMOL/L Anion Gap 8 5-14 MMOL/L Blood Urea Nitrogen 6 L 7-18 MG/DL Creatinine 0.68 0.60-1.30 MG/DL Estimat Glomerular Filtration Rate > 60 BUN/Creatinine Ratio 9 Glucose Level 118 H 70-105 MG/DL Calcium Level 9.5 8.5-10.1 MG/DL Total Bilirubin 0.3 0.1-1.0 MG/DL Aspartate Amino Transf (AST/SGOT) 16 5-34 U/L Alanine Aminotransferase (ALT/SGPT) 11 0-55 U/L Alkaline Phosphatase 62 40-136 U/L Total Protein 7.4 6.4-8.2 GM/DL Albumin 3.9 3.2-4.5 GM/DL Lipase 177 H 8-78 U/L Serum Alcohol < 10 <10 MG/DL Urine Color YELLOW Urine Clarity CLEAR Urine pH 8 5-9 Urine Specific Warren 1.010 L 1.016-1.022 Urine Protein 2+ H NEGATIVE Urine Glucose (UA) NEGATIVE NEGATIVE Urine Ketones NEGATIVE NEGATIVE Urine Nitrite POSITIVE H NEGATIVE Urine Bilirubin NEGATIVE NEGATIVE Urine Urobilinogen 1 NORMAL MG/DL Urine Leukocyte Esterase 2+ H NEGATIVE Urine RBC (Auto) NEGATIVE NEGATIVE Urine RBC NONE /HPF Urine WBC 10-25 H /HPF Urine Squamous Epithelial Cells 5-10 /HPF Urine Crystals NONE /LPF Urine Bacteria LARGE H /HPF Urine Casts NONE /LPF Urine Mucus NEGATIVE /LPF Urine Culture Indicated YES My Orders Orders - CAPRI FLORES APRN Cbc With Automated Diff (03/08/17 16:58) Comprehensive Metabolic Panel (03/08/17 16:58) Lipase (03/08/17 16:58) Ua Culture If Indicated (03/08/17 16:58) Saline Lock/Iv-Start (03/08/17 16:58) Alcohol (03/08/17 16:58) Protime With Inr (03/08/17 16:58) Famotidine Injection (Pepcid Injection) (03/08/17 17:00) Antacid Suspension (Mylanta Suspension (03/08/17 17:00) Lidocaine 2% Viscous 15 Ml (Xylocaine Vi (03/08/17 17:00) Ct Abdomen/Pelvis W (03/08/17 17:34) Iohexol Injection (Omnipaque 350 Mg/Ml 1 (03/08/17 17:45) Ns (Ivpb) (Sodium Chloride 0.9% Ivpb Bag (03/08/17 17:45) Urine Culture (03/08/17 17:58) Medications Given in ED Current Medications Medications Dose Ordered Sig/Clarisse Route Start Time Stop Time Status Last Admin Dose Admin Al Hydrox/Mg Hydrox/Simethicone 30 ml ONCE ONCE PO 03/08/17 17:00 03/08/17 17:01 DC 03/08/17 17:05 30 ML Famotidine 20 mg ONCE ONCE IVP 03/08/17 17:00 03/08/17 17:01 DC 03/08/17 17:07 20 MG Iohexol 100 ml ONCE ONCE IV 03/08/17 17:45 03/08/17 18:01 DC 03/08/17 18:02 100 ML Lidocaine HCl 15 ml ONCE ONCE PO 03/08/17 17:00 03/08/17 17:01 DC 03/08/17 17:05 15 ML Sodium Chloride 100 ml ONCE ONCE IV 03/08/17 17:45 03/08/17 18:01 DC 03/08/17 18:02 80 ML Vital Signs/I&O Vital Sign - Last 12Hours 03/08/17 16:51 Temp 98.9 Pulse 67 Resp 18 B/P (MAP) 183/109 Pulse Ox 94 O2 Delivery Room Air Diagnostic Imaging Diagonstic Imaging: CT Comments NAME: [facility] REC#: [id number] PT STATUS: REG ER : 1960 PHYSICIAN: CAPRI FLORES [employer]INT LINE OPERATOR ADMIT DATE: 03/08/17/ER Draft Date of Exam:03/08/17 CT ABDOMEN/PELVIS W PROCEDURE: CT abdomen and pelvis with contrast. TECHNIQUE: Multiple contiguous axial images were obtained through the abdomen and pelvis after administration of intravenous contrast. INDICATION: Upper abdominal pain since Tuesday. CORRELATION STUDY: None. FINDINGS: LOWER THORAX: Minimal basilar atelectasis. Cardiac enlargement. EG junction, small hiatal hernia. LIVER: There is mixed density, small area of low-density with adjacent calcification in the dome of the liver. This area in aggregate measures approximately 14 mm. The remainder of the liver unremarkable. Slightly prominent Cale's lobe. GALLBLADDER: Present and unremarkable. No bile duct dilatation. SPLEEN: Unremarkable. PANCREAS: Pancreas generally unremarkable. There is very slight haziness anterior to the pancreas as well as adjacent to the stomach. A few prominent vessels and/or lymph nodes are noted in this area. ADRENAL GLANDS: Unremarkable. KIDNEYS: Low-density mass inferior pole left kidney favors probable cyst. Renal parenchyma and collecting systems otherwise unremarkable. ABDOMINAL AORTA: Minimal wall calcification. Very slight ectasia with maximum dimension of 2.1 cm. GASTROINTESTINAL TRACT: Stomach is collapsed, there is a question of some wall thickening of the stomach. Small bowel appears unremarkable. The colon is unremarkable. Normal appendix in the right lower quadrant. Midline abdominal wall diastases is present at the level of the umbilicus. URINARY BLADDER: Relatively decompressed and not well evaluated but grossly unremarkable. REPRODUCTIVE: Uterus appears rather significantly enlarged. A lobulated appearance. Asymmetric low-density region noted in the fundal aspect. Small amount of pelvic fluid. OSSEOUS STRUCTURES: No acute abnormality. IMPRESSION: 1. Slight haziness suggested in the upper abdomen near the pancreas as well as stomach. This is nonspecific and could be associated with gastritis and/or perhaps pancreatitis. A few mildly prominent lymph nodes are also suggested in this area. The findings are considered pathologically enlarged at this time but would recommend followup imaging for reassessment. 2. Large lobulated appearance about the uterus. This was demonstrated on a prior pelvic ultrasound imaging of nearly 2 years earlier but may be somewhat more prominent. Consideration for nonemergent followup pelvic ultrasound imaging recommended. Dictated on workstation # [id number] Dict: 03/08/171817 Trans: 03/08/171826 [facility] [id number] Interpreted by: JEREMY JENKINS DO Electronically signed by: Departure Communication (Admissions) Progress Notes 1856- pain is much improved after the GI cocktail. I will discharge to home on Carafate, Protonix and Bactrim. Impression Impression: Primary Impression: Gastritis Additional Impressions: mild pancreatitis Urinary tract infection Disposition: HOME, SELF-CARE Condition: Improved Departure-Patient Inst. Decision time for Depature: 18:33 Referrals: [facility] BARRY NICK (PCP) Primary Care Physician NAINA GRIFFITH (Family) Primary Care Physician Patient Instructions: NO INSTRUCTIONS GIVEN Add. Discharge Instructions: 1. Clear liquids only for the next 12 hours this would be anything like Gatorade, chicken broth, Jell-O. Take the antibiotics and the acid pharmacovigilance specialist as directed 3. Return to ER for any nausea or vomiting, high fevers, worsening pain 4. Call [facility] tomorrow morning to make an appointment for follow-up within the next 2 days Scripts Pantoprazole Sodium (Protonix) 40 Mg Tablet.dr 40 MG PO DAILY, #30 TAB Prov: CAPRI FLORES APRN 03/08/17 Sucralfate (Carafate) 1 Gm Tablet 1 GM PO ACHS, #40 TAB Prov: CAPRI FLORES APRN 03/08/17 Sulfamethoxazole/Trimethoprim (Bactrim Ds Tablet) 1 Each Tablet 1 EACH PO BID, #10 TAB Prov: CAPRI FLORES APRN 03/08/17 Copy Copies To 1: DEANNA BUTLER PETER J APRN Mar 08, 2017 17:00
[2017-03-08 17:03] LABS: BASOPHILS % (AUTO) 1 % (0-10); EOSINOPHILS # (AUTO) 0.2 10^3/uL (0.0-0.3); EOSINOPHILS % (AUTO) 3 % (0-10); LYMPHOCYTES # (AUTO) 2.3 X 10^3 (1.0-4.0); LYMPHOCYTES % (AUTO) 29 % (12-44); MEAN CORPUSCULAR HEMOGLOBIN 30 PG (25-34); MEAN CORPUSCULAR HGB CONC 33 G/DL (32-36); MEAN CORPUSCULAR VOLUME 94 FL (80-99); MEAN PLATELET VOLUME 10.5 FL (7.4-10.4); MONOCYTES # (AUTO) 0.6 X 10^3 (0.0-1.0); MONOCYTES % (AUTO) 8 % (0-12); NEUTROPHILS # (AUTO) 4.9 X 10^3 (1.8-7.8); NEUTROPHILS % (AUTO) 61 % (42-75); PLATELET COUNT 260 10^3/uL (130-400); RED BLOOD COUNT 4.14 10^6/uL (4.35-5.85); RED CELL DISTRIBUTION WIDTH 14.8 % (10.0-14.5); WHITE BLOOD COUNT 8.1 10^3/uL (4.3-11.0)
[2017-03-08 17:15] LABS: PROTHROMBIN TIME PATIENT 13.3 SEC (12.2-14.7)
[2017-03-08 17:26] LABS: ALANINE AMINOTRANSFERASE 11 U/L (0-55); ALBUMIN 3.9 GM/DL (3.2-4.5); ALCOHOL < 10 MG/DL (<10); ANION GAP 8 MMOL/L (5-14); ASPARTATE AMINO TRANSFERASE 16 U/L (5-34); BILIRUBIN,TOTAL 0.3 MG/DL (0.1-1.0); BLOOD UREA NITROGEN 6 MG/DL (7-18); BUN/CREATININE RATIO 9; CALCIUM 9.5 MG/DL (8.5-10.1); CARBON DIOXIDE 30 MMOL/L (21-32); CHLORIDE 103 MMOL/L (98-107); CREATININE SERUM 0.68 MG/DL (0.60-1.30); GFR ESTIMATED > 60; GLUCOSE 118 MG/DL (70-105); LIPASE 177 U/L (8-78); POTASSIUM 3.5 MMOL/L (3.6-5.0); SODIUM 141 MMOL/L (135-145); TOTAL PROTEIN 7.4 GM/DL (6.4-8.2)
[2017-03-08] MEDS ORDERED: IOHEXOL 350 MG/ML 100 ML (OMNIPAQUE 350) VIAL IV ONE (17:45)
[2017-03-08] MEDS ORDERED: NS 100 ML (IVPB) BAG IV ONE (17:45)
[2017-03-08 18:04] LABS: BILIRUBIN,URINE NEGATIVE (NEGATIVE); KETONES,URINE NEGATIVE (NEGATIVE); LEUKOCYTE ESTERASE ,URINE 2+ (NEGATIVE); NITRITE,URINE POSITIVE (NEGATIVE); PH,URINE 8 (5-9); PROTEIN,URINE 2+ (NEGATIVE); UROBILINOGEN,URINE 1 MG/DL (NORMAL)
--- NOTE | 2017-03-08 18:28 | Diagnostic Imaging Report ---
PROCEDURE: CT abdomen and pelvis with contrast. TECHNIQUE: Multiple contiguous axial images were obtained through the abdomen and pelvis after administration of intravenous contrast. INDICATION: Upper abdominal pain since Tuesday. CORRELATION STUDY: None. FINDINGS: LOWER THORAX: Minimal basilar atelectasis. Cardiac enlargement. EG junction, small hiatal hernia. LIVER: There is mixed density, small area of low-density with adjacent calcification in the dome of the liver. This area in aggregate measures approximately 14 mm. The remainder of the liver unremarkable. Slightly prominent Cale's lobe. GALLBLADDER: Present and unremarkable. No bile duct dilatation. SPLEEN: Unremarkable. PANCREAS: Pancreas generally unremarkable. There is very slight haziness anterior to the pancreas as well as adjacent to the stomach. A few prominent vessels and/or lymph nodes are noted in this area. ADRENAL GLANDS: Unremarkable. KIDNEYS: Low-density mass inferior pole left kidney favors probable cyst. Renal parenchyma and collecting systems otherwise unremarkable. ABDOMINAL AORTA: Minimal wall calcification. Very slight ectasia with maximum dimension of 2.1 cm. GASTROINTESTINAL TRACT: Stomach is collapsed, there is a question of some wall thickening of the stomach. Small bowel appears unremarkable. The colon is unremarkable. Normal appendix in the right lower quadrant. Midline abdominal wall diastases is present at the level of the umbilicus. URINARY BLADDER: Relatively decompressed and not well evaluated but grossly unremarkable. REPRODUCTIVE: Uterus appears rather significantly enlarged. A lobulated appearance. Asymmetric low-density region noted in the fundal aspect. Small amount of pelvic fluid. OSSEOUS STRUCTURES: No acute abnormality. IMPRESSION: 1. Slight haziness suggested in the upper abdomen near the pancreas as well as stomach. This is nonspecific and could be associated with gastritis and/or perhaps pancreatitis. A few mildly prominent lymph nodes are also suggested in this area. The findings are considered pathologically enlarged at this time but would recommend followup imaging for reassessment. 2. Large lobulated appearance about the uterus. This was demonstrated on a prior pelvic ultrasound imaging of nearly 2 years earlier but may be somewhat more prominent. Consideration for nonemergent followup pelvic ultrasound imaging recommended. Dictated by: Dictated on workstation # [id number]
[2017-03-08] MEDS ORDERED: PANT40TA2 PO (18:58)
[2017-03-08] MEDS ORDERED: SUCR1TAB36 PO (18:58)
[2017-03-08] MEDS ORDERED: SULF1TAB35 PO (18:58)
[2017-03-08] MEDS ORDERED: cefTRIAXone INJECTION 1,000 MG in NS (IVPB) 50 ML IV ONE (19:00)
[2017-03-08 19:42] VITALS: BP 183/109
== END 2017-03-08 19:42 | disposition home or self-care (01) ==
LOC: EDUNIT# 16:24 → ER 16:27
DX: K29.70 Gastritis, unspecified, without bleeding (principal); K85.90 Acute pancreatitis without necrosis or infection, unspecified; N39.0 Urinary tract infection, site not specified; E78.00 Pure hypercholesterolemia, unspecified; I10 Essential (primary) hypertension; E03.9 Hypothyroidism, unspecified; E11.9 Type 2 diabetes mellitus without complications; Z79.84 Long term (current) use of oral hypoglycemic drugs; Z98.51 Tubal ligation status
CPT/HCPCS: 36415; 74177; 80053; 80320; 81000; 83690; 85025; 85610; 87088; 87186; 99283

== ENCOUNTER → 2019-01-31 | Outpatient (CLI) | payer MEDICAID ==
[~2019-01-31] MED LIST changes: +HYDR-4226 PO; -HYDR-757 PO; -LOSA50TA36 PO; +LOSA50TA63 PO; +PANT40TA2 PO; +SUCR1TAB36 PO; +SULF1TAB35 PO
--- NOTE | 2019-02-01 08:39 | Diagnostic Imaging Report ---
INDICATION: Routine screening. COMPARISON: 09/30/2016 and 06/21/2014. TECHNIQUE: 2D and 3D bilateral screening mammography was performed with CAD. FINDINGS: Both breasts remain heterogeneously dense, limiting the sensitivity of mammography. The overall parenchymal pattern is stable. There are benign calcifications. No dominant mass or malignant appearing microcalcifications are seen. The axillae are unremarkable. IMPRESSION: No mammographic features suspicious for malignancy are identified. Dictated by: Dictated on workstation # [id number]
== END ==
LOC: RAD 14:10
PROVIDERS: ATTEND Nurse Practitioner Primary Care
DX: Z12.31 Encounter for screening mammogram for malignant neoplasm of breast (principal); Z01.419 Encounter for gynecological examination (general) (routine) without abnormal findings
CPT/HCPCS: 77067

== ENCOUNTER → 2020-04-23 | Outpatient (CLI) | payer MEDICAID ==
[~2020-04-23] MED LIST changes: +METF-865 PO; -METF500T8 PO; +SIMV10TA26 PO; -SIMV10TA3 PO
--- NOTE | 2020-04-23 14:13 | Diagnostic Imaging Report ---
INDICATION: Routine screening. COMPARISON: 01/31/2019 and 09/30/2016. TECHNIQUE: 2D and 3D bilateral screening mammography was performed with CAD. FINDINGS: Both breasts are heterogeneously dense, limiting the sensitivity of mammography. Benign nodular densities in the outer right breast appear stable. There are benign calcifications in both breasts. No spiculated mass or malignant appearing microcalcifications are seen. The axillae are unremarkable. IMPRESSION: No mammographic features suspicious for malignancy are identified. ACR BI-RADS Category 2: Benign findings. Result letter will be mailed to the patient. Note: At least 10% of breast cancer is not imaged by mammography. Dictated by: Dictated on workstation # [id number]
== END ==
LOC: RAD 11:21
PROVIDERS: ATTEND Nurse Practitioner Family
DX: Z12.31 Encounter for screening mammogram for malignant neoplasm of breast (principal)
CPT/HCPCS: 77063; 77067

== ENCOUNTER → 2021-10-08 | Outpatient (CLI) | payer MEDICAID, MEDICARE ==
[~2021-10-08] MED LIST changes: +CYCL10TA25 PO; -CYCL10TA9 PO; +RT-ALBUTEROL SULF 2.5 MG/3 ML PRE-MIX VIAL INH ONE; -SULF1TAB35 PO; +SULF1TAB38 PO
== END ==
LOC: RT 13:00
PROVIDERS: ATTEND Nurse Practitioner Family
DX: R06.02 Shortness of breath (principal)
CPT/HCPCS: 94060; 94726; 94729